=== PATIENT | male | born 1965 | race African-American/Black ===

== ENCOUNTER 2023-04-14 12:35 | Emergency (ER) | payer BC, MEDICAID, MEDICARE ==
[~2023-04-14] VITALS: Ht 167.6 cm; Wt 65.8 kg
[2023-04-14] MEDS ORDERED: ALBUTEROL (0.083%) 2.5MG/3ML NEB HHN STA (12:53)
[2023-04-14 13:22] LABS: BASOPHILS % 0.4 % (0.0-2.0); HEMATOCRIT. 45.2 % (42.0-52.0); HEMOGLOBIN. 15.2 g/dL (14.0-18.0); LYMPHOCYTES % 17.6 % (20.0-50.0); MEAN CORPUSCULAR HEMOGLOBIN 31.8 pg (28.0-32.0); MEAN CORPUSCULAR HGB CONC 33.6 g/dL (31.0-37.0); MEAN CORPUSCULAR VOLUME 94.7 fL (80.0-94.0); MEAN PLATELET VOLUME 6.8 fl (7.4-10.4); PLATELET 195 x1000/uL (130-400); RED BLOOD CELL COUNT 4.77 mill/uL (4.7-6.1); RED CELL DISTRIBUTION WIDTH 13.1 % (11.6-14.6)
[2023-04-14 13:31] LABS: ALANINE AMINOTRANSFERASE 22 IU/L (10-49); ALBUMIN 3.9 g/dL (3.2-4.8); ASPARTATE AMINOTRANSFERASE 24 IU/L (<34); BILIRUBIN TOTAL 0.9 mg/dL (0.1-1.0); CARBON DIOXIDE 35 mEq/L (21-32); CHLORIDE 96 mEq/L (98-107); CREATININE 0.9 mg/dL (0.6-1.3); GLUCOSE 119 mg/dL (70-105); POTASSIUM 4.3 mEq/L (3.5-5.1); PROTEIN TOTAL 7.3 g/dL (6.0-8.3); SODIUM 135 mEq/L (136-145); TROPONIN I HIGH SENSITIVITY 29 ng/L (3.0-53); UREA NITROGEN BLOOD 13 mg/dL (9-23)
[2023-04-14 13:35] VITALS: PULSE 116; RESP 24; O2SAT 99
[2023-04-14] MEDS ORDERED: METHYLPREDNISOLONE SOD SUCC 40MG VIAL IV ONE (14:00)
[2023-04-14] MEDS ORDERED: METHYLPREDNISOLONE SOD SUCC 40MG/ML (ACT-O-VIAL) IV NR (14:15)
[2023-04-14 14:52] VITALS: BP 150/90; PULSE 118; RESP 22; TEMP 98.6
[2023-04-14] MEDS ORDERED: IPRATROPIUM BROMIDE (0.02%) 0.5MG/2.5ML NEB HHN SCH (18:00)
[2023-04-14] MEDS ORDERED: METHYLPREDNISOLONE SOD SUCC 40MG/ML (ACT-O-VIAL) IV SCH (22:00)
[2023-04-19] MEDS ORDERED: P20 PO (09:50)
== END 2023-04-14 16:43 | disposition left against medical advice (07) ==
LOC: EDBD 12:35 → ER 12:35 → EDBEDREQTM 15:30 → EDBEDREQ 15:30 → ER 16:43
DX: J44.9 Chronic obstructive pulmonary disease, unspecified (principal)
CPT/HCPCS: 80053; 83880; 85025; 85379; 84484; 36415; 71045; 94640; 93005; 96374; 99285; J2920; Z7610 ×5